=== PATIENT | male | born 1990 | race Two or more races ===

== ENCOUNTER 2019-05-22 20:59 | Emergency (ER) | payer MEDICAID ==
[~2019-05-22] VITALS: Ht 180.3 cm; Wt 88.5 kg
[2019-05-22 21:22] VITALS: BP 138/63
[2019-05-22] MEDS ORDERED: TEMA30CA6 PO (21:42)
--- NOTE | 2019-05-22 21:43 | PHYS DOC ---
Past Medical History Past Medical History: No Pertinent History (EZEKIEL BUCK APRN) Past Surgical History: No Surgical History (EZEKIEL BUCK APRN) Alcohol Use: Occasionally Drug Use: None (EZEKIEL BUCK APRN) Adult General Chief Complaint Chief Complaint: SORE THROAT HPI HPI Patient is a 29 year old male who presents with complaints. The patient states that he is here from [place] due to his sister being terminally ill. The patient states he's been having a sore throat for last several days. He also been having congestion, runny nose, green discharge from his nose. He also states that he's been having dysuria after he slipped with a girl 3-4 weeks ago. Patient also states that he is out of one of his prescriptions and that he is unable to get filled as his doctor in [place] is unable centered [place] state lines. (EZEKIEL BUCK APRN) Review of Systems Review of Systems Constitutional: Denies fever or chills [] Eyes: Denies change in visual acuity, redness, or eye pain [] HENT: Reports nasal congestion and sore throat [] Respiratory: Denies cough or shortness of breath [] Cardiovascular: No additional information not addressed in HPI [] GI: Denies abdominal pain, nausea, vomiting, bloody stools or diarrhea [] : Reports dysuria. Musculoskeletal: Denies back pain or joint pain [] Integument: Denies rash or skin lesions [] Neurologic: Denies headache, focal weakness or sensory changes [] Endocrine: Denies polyuria or polydipsia [] Complete systems were reviewed and found to be within normal limits, except as documented in this note. (EZEKIEL BUCK APRN) Current Medications Current Medications Current Medications Medications (Trade) Dose Ordered Sig/Robin Start Time Stop Time Status Last Admin Dose Admin Azithromycin (Zithromax) 1,000 mg 1X ONCE 05/22/19 22:00 05/22/19 22:01 DC 05/22/19 21:32 1,000 MG Ceftriaxone Sodium (Rocephin Im) 250 mg 1X ONCE 05/22/19 22:00 05/22/19 22:01 DC 05/22/19 21:36 250 MG (EZEKIEL HAYES DO) Allergies Allergies Allergies Coded Allergies Type Severity Reaction Last Updated Verified No Known Drug Allergies 05/22/19 No (EZEKIEL HAYES DO) Physical Exam Physical Exam Constitutional: Well developed, well nourished, no acute distress, non-toxic appearance. [] HENT: Normocephalic, atraumatic, bilateral external ears normal, oropharynx moist, tonsils are not enlarged, no oral exudates, nose turbinates inflamed. Eyes: PERRLA, EOMI, conjunctiva normal, no discharge. [] Neck: Normal range of motion, no tenderness, supple, no stridor. [] Cardiovascular:Heart rate regular rhythm, no murmur [] Lungs & Thorax: Bilateral breath sounds clear to auscultation [] Abdomen: Bowel sounds normal, soft, no tenderness, no masses, no pulsatile masses. [] Skin: Warm, dry, no erythema, no rash. [] Back: No tenderness, no CVA tenderness. [] Extremities: No tenderness, no cyanosis, no clubbing, ROM intact, no edema. [] Neurologic: Alert and oriented X 3, normal motor function, normal sensory function, no focal deficits noted. [] Psychologic: Affect normal, judgement normal, mood normal. [] (EZEKIEL BUCK APRN) Current Patient Data Vital Signs Vital Signs Date Time Temp Pulse Resp B/P (MAP) Pulse Ox O2 Delivery O2 Flow Rate FiO2 05/22/19 21:22 98.1 65 17 138/63 (88) 99 Room Air 98.1 (EZEKIEL HAYES DO) EKG EKG [] (EZEKIEL BUCK APRN) Radiology/Procedures Radiology/Procedures [] (EZEKIEL BUCK APRN) Course & Med Decision Making Course & Med Decision Making Pertinent Labs and Imaging studies reviewed. (See chart for details) Patient appears to be having the followin. Upper Respiratory Infection: Will recommend patient to take Zyrtec for drainage per label instructions. 2. Concern for STD: Discussed with patient and he wants treatment without testing. Will treat with Rocephin/Azithromycin. Patient is agreeable. 3. Medication Refill. Discussed with patient. Due to the situation will refill Restoril PRN x 7 tablets (30 MG). (EZEKIEL BUCK APRN) Dragon Disclaimer Dragon Disclaimer This electronic medical record was generated, in whole or in part, using a voice recognition dictation system. (EZEKIEL BUCK APRN) Departure Departure Impression: Primary Impression: Upper respiratory infection Additional Impressions: Concern about STD in male without diagnosis Medication refill Disposition: HOME, SELF-CARE Condition: STABLE Patient Instructions: Sexually Transmitted Disease, Upper Respiratory Infection, Adult Additional Instructions: Thank you for visiting [facility]. We appreciate you trusting us with your care. If any additional problems come up don't hesitate to return to visit us. Please follow up with your primary care provider so they can plan additional care if needed and know about the problem that you had. If symptoms worsen come back to the Emergency Department. Any concerning symptoms that start such as chest pain, shortness of air, weakness or numbness on one side of the body, running high fevers or any other concerning symptoms return to the ER. Please take Zyrtec per label instructions. Can also add Mucinex per label instructions. Please fill your medications at any pharmacy and follow the prescription instructions. Scripts Temazepam (RESTORIL) 30 Mg Capsule 1 CAP PO QHS PRN for INSOMNIA, #7 CAP Prov: EZEKIEL BUCK APRN 05/22/19 Attending Signature Attending Signature I have reviewed the PA/DIRECTOR IT PRO[employer]'s note and plan of care. I was available for consultation as needed during the patient's visit in the emergency department. I agree with the clinical impression, plan, and disposition. (EZEKIEL HAYES DO) Problem Qualifiers Primary Impression: Upper respiratory infection URI type: unspecified viral URI Qualified Codes: J06.9 - Acute upper res piratory infection, unspecified EZEKIEL BUCK APRN May 22, 2019 21:43 EZEKIEL HAYES DO May 23, 2019 04:50
[2019-05-22] MEDS ORDERED: AZITHROMYCIN 250 MG TABLET. PO ONE (22:00)
[2019-05-22] MEDS ORDERED: cefTRIAXone IM 250 MG VIAL IM ONE (22:00)
== END 2019-05-22 21:50 | disposition home or self-care (01) ==
LOC: EEVIPCON 20:59 → ER 20:59
DX: J06.9 Acute upper respiratory infection, unspecified (principal); Z20.2 Contact with and (suspected) exposure to infections with a predominantly sexual mode of transmission; Z76.0 Encounter for issue of repeat prescription
CPT/HCPCS: 96372; 99283; J0696; Q0144